=== PATIENT | male | born 1980 | race Caucasian/White ===

== ENCOUNTER 2017-03-22 20:59 | Emergency (ER) | payer OTHER ==
[~2017-03-22] VITALS: Ht 177.8 cm; Wt 72.5 kg
[2017-03-22 21:01] VITALS: Ht 177.8 cm; Wt 72.5 kg
[2017-03-22] MEDS ORDERED: ONDANSETRON 4 MG INJ IV STA (21:46)
[2017-03-22] MEDS ORDERED: morphine 4 MG/ML VIAL IV STA (21:46)
[2017-03-22] MEDS ORDERED: SOD CHLORIDE 0.9% 1,000 ML IV STA (21:46)
[2017-03-22 22:14] LABS: ADD SCAN DIFF NO
[2017-03-22 22:16] LABS: BASOPHIL # 0.1 10^3/ul (0.0-0.1); BASOPHILS % 0.9 % (0.0-2.0); EOSINOPHILS # 0.4 10^3/ul (0.0-0.5); EOSINOPHILS % 5.3 % (0.0-7.0); HEMATOCRIT 41.5 % (42.0-52.0); HEMOGLOBIN 13.5 g/dl (14.0-18.0); LYMPHOCYTES # 2.5 10^3/ul (0.8-2.9); LYMPHOCYTES % 36.2 % (15.0-51.0); MEAN CORPUSCULAR HEMOGLOBIN 28.6 pg (29.0-33.0); MEAN CORPUSCULAR HGB CONC 32.5 g/dl (32.0-37.0); MEAN CORPUSCULAR VOLUME 87.9 fl (82.0-101.0); MEAN PLATELET VOLUME 9.6 fl (7.4-10.4); MONOCYTE # 0.5 10^3/ul (0.3-0.9); MONOCYTES % 7.3 % (0.0-11.0); NEUTROPHIL # 3.5 10^3/ul (1.6-7.5); NEUTROPHILS % 50.2 % (39.0-77.0); PLATELET COUNT 359 10^3/UL (140-415); RED BLOOD COUNT 4.72 10^6/ul (4.70-6.10); RED CELL DISTRIBUTION WIDTH 13.5 % (11.5-14.5)
[2017-03-22 22:44] LABS: ALBUMIN 4.7 g/dl (3.3-4.9); ALBUMIN/GLOBULIN RATIO 1.62; CALCIUM 9.6 mg/dl (8.4-10.2); CREATININE 1.07 mg/dl (0.61-1.24); POTASSIUM 4.3 mmol/L (3.5-5.1); TOTAL PROTEIN 7.6 g/dl (6.1-8.1)
--- NOTE | 2017-03-22 23:23 | RADRPT ---
PROCEDURE: ULTRASOUND LIMITED ABDOMEN CLINICAL INDICATION: 36-year-old male with abdominal pain. TECHNIQUE: Multiple sonographic of the right upper quadrant of the abdomen were obtained. The imag es were reviewed on a PACS workstation. COMPARISON: CT abdomen/pelvis January 04, 2015. FINDINGS: The pancreas is partially visualized and is otherwise without abnormal echogenicity. The liver displays normal echogenicity. The liver measures 14.2 cm in length. No evidence of intrah epatic biliary ductal dilatation is seen. The portal and hepatic veins are unremarkable. The gallbladder is not visualized consistent with prior cholecystectomy. No pericholecystic fluid is seen. The common bile duct measures 4.6 mm and is not dilated. The right kidney displays normal echogenicity. The right kidney measures 9.8 cm in maximal length . No caliectasis or hydronephrosis is seen. No free fluid is seen. IMPRESSION: Status post cholecystectomy. .Joseph Maxwell MD, Date Time Electronically viewed and signed by .Joseph Maxwell MD, on 03/22/2017 23:23 .Karon/
--- NOTE | 2017-03-22 23:42 | ERD ---
ER Documentation Chief Complaint Date/Time DATE: 03/22/17 TIME: 23:42 Chief Complaint RUQ abd painx 1 week, sp cholecystectomy 8 years ago HPI This is a 36-year-old male who presents to the emergency department today complaining of upper abdominal pain for the past week. States it has been intermittent but has gotten worse over the past day. States he has had this problem in the past. States he has a history of pancreatitis. States he has not taken any medication for the pain. States he has had some nausea but no vomiting. States he had his gallbladder removed many years ago. Denies any fevers or chills. States that he smokes cigarettes and marijuana and also occasionally uses meth. ROS All systems reviewed and are negative except as per history of present illness. Medications Home Meds Active Scripts Famotidine* (Pepcid*) 20 Mg Tablet, 20 MG PO BID for 10 Days, TAB Prov:KALPANA CHI PA-C 03/23/17 Ondansetron Hcl* (Zofran*) 4 Mg Tablet, 4 MG PO Q6H for NAUSEA AND/OR VOMITING, #30 TAB Prov:KALPANA CHI PA-C 03/23/17 Tramadol HCl (Tramadol HCl) 50 Mg Tablet, 50 MG PO Q4 Y for PAIN, #20 TAB Prov:KALPANA CHI PA-C 03/23/17 Allergies Allergies: Coded Allergies: No Known Drug Allergies (Verified Allergy, Unknown, 01/02/15) PMhx/Soc History of Surgery: Yes (gallbladder) Anesthesia Reaction: No Hx Neurological Disorder: No Hx Respiratory Disorders: No Hx Cardiac Disorders: No Hx Psychiatric Problems: No Hx Alcohol Use: No Hx Substance Use: Yes (marijuana use) Hx Tobacco Use: No Physical Exam Vitals Vital Signs Date Time Temp Pulse Resp B/P Pulse Ox O2 Delivery O2 Flow Rate FiO2 03/23/17 01:12 66 20 124/72 100 Room Air 03/22/17 21:01 98.7 103 20 127/75 100 Physical Exam Const: Mild distress Head: Atraumatic Eyes: Normal Conjunctiva ENT: Normal External Ears, Nose and Mouth. Neck: Full range of motion..~ No meningismus. Resp: Clear to auscultation bilaterally Cardio: Regular rate and rhythm, no murmurs Abd: Soft, epigastric and right upper quadrant tenderness, non distended. Normal bowel sounds. No lower abdominal pain. No tenderness McBurney's Skin: No petechiae or rashes Back: No midline or flank tenderness Neur: Awake and alert Psych: Normal Mood and Affect Result Diagram: 03/22/17220403/22/172204 Results 24 hrs Laboratory Tests Test 03/22/17 22:05 03/23/17 00:21 White Blood Count 7.010^3/ul Red Blood Count 4.7210^6/ul Hemoglobin 13.5g/dl Hematocrit 41.5% Mean Corpuscular Volume 87.9fl Mean Corpuscular Hemoglobin 28.6pg Mean Corpuscular Hemoglobin Concent 32.5g/dl Red Cell Distribution Width 13.5% Platelet Count 47396^3/UL Mean Platelet Volume 9.6fl Neutrophils % 50.2% Lymphocytes % 36.2% Monocytes % 7.3% Eosinophils % 5.3% Basophils % 0.9% Nucleated Red Blood Cells % 0.0/100WBC Neutrophils # 3.510^3/ul Lymphocytes # 2.510^3/ul Monocytes # 0.510^3/ul Eosinophils # 0.410^3/ul Basophils # 0.110^3/ul Nucleated Red Blood Cells # 0.010^3/ul Sodium Level 137mmol/L Potassium Level 4.3mmol/L Chloride Level 102mmol/L Carbon Dioxide Level 29mmol/L Anion Gap 10 Blood Urea Nitrogen 14mg/dl Creatinine 1.07mg/dl Glucose Level 101mg/dl Calcium Level 9.6mg/dl Total Bilirubin 0.0mg/dl Direct Bilirubin 0.00mg/dl Indirect Bilirubin 0.0mg/dl Aspartate Amino Transf (AST/SGOT) 35IU/L Alanine Aminotransferase (ALT/SGPT) 59IU/L Alkaline Phosphatase 104IU/L Total Protein 7.6g/dl Albumin 4.7g/dl Globulin 2.90g/dl Albumin/Globulin Ratio 1.62 Lipase 37U/L Bedside Urine pH (LAB) 6.5 Bedside Urine Protein (LAB) Negative Bedside Urine Glucose (UA) Negative Bedside Urine Ketones (LAB) Negative Bedside Urine Blood Negative Bedside Urine Nitrite (LAB) Negative Bedside Urine Leukocyte Esterase (L Negative Current Medications Medications (Trade) Dose Ordered Sig/Michell Route PRN Reason Start Time Stop Time Status Last Admin Dose Admin Sodium Chloride (NS) 1,000 ml @ 1,000 mls/hr Q1H STAT IV 03/22/17 21:46 03/22/17 22:45 DC 03/22/17 22:14 Morphine Sulfate (morphine) 4 mg ONCE STAT IV 03/22/17 21:46 03/22/17 21:49 DC 03/22/17 22:08 Ondansetron HCl (Zofran Inj) 4 mg ONCE STAT IV 03/22/17 21:46 03/22/17 21:49 DC 03/22/17 22:08 Acetaminophen/ Hydrocodone Bitart ([place]by (5/325)) 1 tab ONCE ONCE PO 03/23/17 00:30 03/23/17 00:31 DC 03/23/17 00:18 Famotidine (Pepcid Iv) 20 mg ONCE ONCE IV 03/23/17 00:30 03/23/17 00:31 DC 03/23/17 00:18 DIAGNOSTIC IMAGING REPORT Patient: ARELY JAIMES : 1980 Age: 36 Sex: M MR #: [id number] DOS: 03/22/17 2146 Ordering MD: KALPANA CHI PA-C Location: [facility] Room/Bed: PROCEDURE: ULTRASOUND LIMITED ABDOMEN CLINICAL INDICATION: 36-year-old male with abdominal pain. TECHNIQUE: Multiple sonographic of the right upper quadrant of the abdomen were obtained. The images were reviewed on a PACS workstation. COMPARISON: CT abdomen/pelvis January 04, 2015. FINDINGS: The pancreas is partially visualized and is otherwise without abnormal echogenicity. The liver displays normal echogenicity. The liver measures 14.2 cm in length. No evidence of intrahepatic biliary ductal dilatation is seen. The portal and hepatic veins are unremarkable. The gallbladder is not visualized consistent with prior cholecystectomy. No pericholecystic fluid is seen. The common bile duct measures 4.6 mm and is not dilated. The right kidney displays normal echogenicity. The right kidney measures 9.8 cm in maximal length . No caliectasis or hydronephrosis is seen. No free fluid is seen. IMPRESSION: Status post cholecystectomy. .Joseph Maxwell MD, Date Time Electronically viewed and signed by .Joseph Maxwell MD, on 03/22/2017 23:23 .M/ CC: KALPANA CHI PA-C Procedures/[facility] This a 36-year-old male who presents to the emergency department today complaining of abdominal pain for the past week worsening over the past day. Patient has had a history of abdominal pain in the past. Upon review of patient 's previous medical records he was admitted for pancreatitis in September 2014. He was also seen twice in 2015 for abdominal pain and similar complaints. I did do a Wendy review of the patient and he was seen in January of this year for abdominal pain admission hospital. He does not appear to have any other visits for pain related complaints. Given patient's history of pancreatitis and location of pain I did obtain laboratory work as well as imaging Laboratory work shows no elevated white blood cell count. His hemoglobin is very mildly decreased. Platelets are within normal limits. Electrolytes are within normal limits. Glucose within normal limits. Liver function is within normal limits. Lipase is within normal limits. UA is negative for infection Ultrasound shows status post cholecystectomy. There is no free fluid seen. There is no pericholecystic fluid. Common bile duct measures 4.6 mm and is not dilated. Patient was given morphine, Zofran, Pepcid and IV fluids here in the emergency department. He still complained of pain and was therefore given a [place]by. Patient does abuse drugs however he does not appear to be exhibiting drug- seeking behavior at this time. Patient will be given a short course of tramadol ,, Pepcid and Zofran for home. Patient was instructed to stop abusing drugs and smoking cigarettes. At this time the patient is stable for discharge and outpatient management. Patient should follow up with their PCP in the next 1-2 days for referral to GI specialist. I have explained this to the patient. I have given him a list of resources. I did discuss with the patient his multiple visits for abdominal pain. Discussion with the patient he has been told the same thing from other providers and that he does need to see a GI specialist. They may return to the emergency department sooner for any persistent or worsening of symptoms. Patient understood and agreed with the plan. Discussed the patient with Dr. Blakely and he is in agreement with the plan Departure Diagnosis: Primary Impression: Abdominal pain Abdominal location: right upper quadrant Qualified Code: R10.11 - Right upper quadrant abdominal pain Condition: KALPANA Yuen PA-C March 22, 2017 23:42
[2017-03-23 00:18] LABS: URINE BLOOD (Dip) POC Negative (NEGATIVE)
[2017-03-23] MEDS ORDERED: HYDROCODONE/APAP (5/325) TAB PO ONE (00:30)
[2017-03-23] MEDS ORDERED: FAMOTIDINE 20 MG INJ IV ONE (00:30)
[2017-03-23] MEDS ORDERED: TRAM50TA2 PO (00:53)
[2017-03-23] MEDS ORDERED: FAMO-18 PO (00:54)
[2017-03-23] MEDS ORDERED: ONDA4TAB8 PO (00:54)
[2017-03-23 01:12] VITALS: BP 124/72; PULSE 66; RESP 20
== END 2017-03-23 01:14 | disposition home or self-care (01) ==
LOC: FTE 20:59
DX: R10.11 Right upper quadrant pain (principal); R11.0 Nausea; F17.210 Nicotine dependence, cigarettes, uncomplicated
CPT/HCPCS: 36415; 76705; 80053; 81003; 83690; 85025; 96374; 96375; 99285; J2270; J2405; J7030